=== PATIENT | female | born 1985 | race African-American/Black ===

== ENCOUNTER 2021-08-23 07:51 | Emergency (ER) | payer MEDICAID ==
[2021-08-23 09:07] LABS: CARBON DIOXIDE,CO2 26.5 mmol/L (21.0-32.0); POTASSIUM,K 4.2 mmol/L (3.5-5.1)
== END 2021-08-23 11:39 | disposition home or self-care (01) ==
LOC: MW.ED 07:51
DX: O20.9 Hemorrhage in early pregnancy, unspecified (principal); I10 Essential (primary) hypertension; Z79.899 Other long term (current) drug therapy; Z3A.01 Less than 8 weeks gestation of pregnancy
CPT/HCPCS: 36415; 76817; 76817-26; 80053; 81001; 81025; 84702; 85025; 86900; 86901; 99283; 99284